=== PATIENT | male | born 1970 | race Caucasian/White ===

== ENCOUNTER 2025-02-22 06:26 | Day surgery (SDC) | payer BC, SELFPAY | END 2025-02-22 09:02 | disposition home or self-care (01) | LOC: GI 06:26 | PROVIDERS: ATTENDING PHYSICIAN Internal Medicine | DX: Z12.11 Encounter for screening for malignant neoplasm of colon (principal); K57.30 Diverticulosis of large intestine without perforation or abscess without bleeding; N42.9 Disorder of prostate, unspecified; D12.5 Benign neoplasm of sigmoid colon; K63.5 Polyp of colon; Z86.0101 Personal history of adenomatous and serrated colon polyps | CPT/HCPCS: 45380; 88305 ==